=== PATIENT | female | born 1990 | race African-American/Black ===

== ENCOUNTER 2021-08-27 19:20 | Emergency (ER) | payer OTHER, SELFPAY ==
[2021-08-27] MEDS ORDERED: Ondansetron ODT 4 MG TAB ONE (20:43)
[2021-08-27] MEDS ORDERED: Ibuprofen 800 MG TAB ONE (20:43)
== END 2021-08-27 20:50 | disposition home or self-care (01) ==
LOC: NAV ERS 19:20
DX: G44.209 Tension-type headache, unspecified, not intractable (principal)
CPT/HCPCS: 99283; Q0162